=== PATIENT | male | born 1950 | race Two or more races ===

== ENCOUNTER → 2020-05-09 06:21 | Outpatient (CLI) | payer OTHER | END | disposition home or self-care (01) | LOC: LAB 06:21 | PROVIDERS: ATTEND Urology | DX: C61 Malignant neoplasm of prostate (principal); R97.20 Elevated prostate specific antigen [PSA]; Z12.5 Encounter for screening for malignant neoplasm of prostate; R31.0 Gross hematuria ==

== ENCOUNTER 2022-08-16 11:47 | Emergency (ER) | payer OTHER ==
[~2022-08-16] VITALS: Ht 167.6 cm; Wt 68.9 kg
== END 2022-08-16 14:15 | disposition home or self-care (01) ==
LOC: ER 11:47
DX: T15.91XA Foreign body on external eye, part unspecified, right eye, initial encounter (principal)

== ENCOUNTER 2023-12-23 19:24 | Emergency (ER) | payer OTHER ==
[~2023-12-23] VITALS: Ht 180.3 cm; Wt 72.6 kg
[2023-12-23] MEDS ORDERED: AMLODIPINE-OLM1 EAC2 (19:34)
[2023-12-23] MEDS ORDERED: LIPO-FLAVONOID1 EACH (19:35)
[2023-12-23] MEDS ORDERED: MOTION SICKNESS25 M1 (19:35)
[2023-12-23] MEDS ORDERED: FERROCITE324 MG (19:36)
[2023-12-23] MEDS ORDERED: VERELAN PM200 MG (19:36)
== END 2023-12-23 21:09 | disposition home or self-care (01) ==
LOC: ER 19:25
DX: R53.81 Other malaise (principal); I10 Essential (primary) hypertension

== ENCOUNTER 2025-08-17 07:06 | Emergency (ER) | payer OTHER ==
[~2025-08-17] VITALS: Ht 175.3 cm; Wt 69.4 kg
[~2025-08-17 07:06] MED LIST: AMLODIPINE-OLM1 EAC2; FERROCITE324 MG; LIPO-FLAVONOID1 EACH; MOTION SICKNESS25 M1; VERELAN PM200 MG
[2025-08-17] MEDS ORDERED: FAMOTIDINE/PF 20 MG in 0.9 % SODIUM CHLORIDE 8 ML IV PUSH ONE (07:45)
[2025-08-17] MEDS ORDERED: ACETAMINOPHEN 500 MG GEL..CAP PO ONE (07:45)
[2025-08-17] MEDS ORDERED: 0.9 % SODIUM CHLORIDE 1,000 ML IV SCH (07:45)
[2025-08-17] MEDS ORDERED: ONDANSETRON HCL 2 MG/ML VIAL IV ONE (07:45)
[2025-08-17 08:27] LABS: BASO % 0.3 % (0.1-1.2); EOS # 0.09 (0.04-0.54); EOS % 1.1 % (0.7-7.0); LYMPH # 1.00 (1.18-3.74); LYMPH % 12.5 % (19.3-53.1); MEAN PLATELET VOLUME 10.70 fl (9.4-12.4); MONO # 0.60 (0.24-0.82); MONO % 7.5 % (4.7-12.5); NEUT # 6.25 (1.56-6.13); NEUT % 78.3 % (34.0-71.1); RED CELL DISTRIBUTION WIDTH 12.8 % (11.6-14.4)
[2025-08-17 08:52] LABS: ALT/SGPT 25.0 U/L (12-78); AST/SGOT 22.0 U/L (15-37); BILIRUBIN TOTAL 0.4 mg/dL (0.3-1.2); BUN CREA RATIO 14.0 (7.0-25.0); CREATININE SERUM 1.25 mg/dL (0.70-1.30); GFR 56.62; GLOBULINA 3.3 G/DL (2.4-3.5); GLUCOSE FASTING 78.0 mg/dL (65-100); OSMOLALITY SERUM 288.0 MOSM/KG (275-295)
[2025-08-17] MEDS ORDERED: LEVSIN0.125 MG PO (10:42)
[2025-08-17] MEDS ORDERED: PROTONIX40 MG PO (10:42)
[2025-08-17] MEDS ORDERED: CARAFATE1 GM PO (10:42)
[2025-08-17] MEDS ORDERED: PEPCID AC20 MG PO (10:42)
== END 2025-08-17 12:17 | disposition home or self-care (01) ==
LOC: ER 07:06
PROVIDERS: General Practice
DX: K52.9 Noninfective gastroenteritis and colitis, unspecified (principal); R10.11 Right upper quadrant pain; A08.8 Other specified intestinal infections; R11.2 Nausea with vomiting, unspecified; R10.9 Unspecified abdominal pain